=== PATIENT | male | born 1960 | race Two or more races ===

== ENCOUNTER 2019-06-18 15:01 | Emergency (ER) | payer MEDICAID ==
[~2019-06-18] VITALS: Ht 180.3 cm; Wt 111.1 kg
[2019-06-18 15:33] VITALS: BP 107/57
[2019-06-18 15:54] LABS: Basophils # (auto) 0 uL; Basophils % (auto) 0.5 % (0.0-2.0); Eosinophils # (auto) 0.1 uL; Eosinophils % (auto) 1.4 % (0.0-7.0); Hemoglobin 14.3 g/dL (13.5-17.5); Lymphocytes # (auto) 1.2 uL; Lymphocytes % (auto) 15.5 % (10.0-50.0); Mean Corpuscular Hemoglobin 30.2 pg (28.0-32.0); Mean Corpuscular Volume 88.9 fL (80.0-100.0); Monocytes # (auto) 0.4 uL; Neutrophils # (auto) 5.9 uL; Neutrophils % (auto) 77.6 % (37.0-80.0); Platelet Count (auto) 166 10^3/uL (140-450); Red Blood Cells 4.73 10^6/uL (4.5-5.90); Red Cell Distribution Width 14.2 % (11.8-14.3); White Blood Cell 7.6 10^3/uL (4.4-10.8)
[2019-06-18 16:14] LABS: Albumin 3.6 g/dL (3.4-5.0); Anion Gap 3 (5-15); Blood Urea Nitrogen 17 mg/dL (7-18); Calcium 8.7 mg/dL (8.5-10.1); Carbon Dioxide 29 mmol/L (21-32); Chloride 107 mmol/L (98-107); Glucose 129 mg/dL (74-106); Potassium 4.1 mmol/L (3.5-5.1); Sodium 139 mmol/L (136-145)
[2019-06-18 16:20] LABS: Alanine Aminotransferase 11 U/L (16-61); Alkaline Phosphatase 77 U/L (45-117); Aspartate Aminotransferase 13 U/L (15-37); BUN/Creatinine Ratio 20.5; Bilirubin, Total 0.5 mg/dL (0.2-1.0); GFR African American 122 mL/min; GFR Non-African American 101 mL/min; Total Protein 6.9 g/dL (6.4-8.2)
== END 2019-06-18 20:39 | disposition left against medical advice (07) ==
LOC: ER 15:01
DX: R42 Dizziness and giddiness (principal); Z53.21 Procedure and treatment not carried out due to patient leaving prior to being seen by health care provider
CPT/HCPCS: 36415; 80053; 80320; 82962; 84484; 85025; 93005